=== PATIENT | female | born 1970 | race Two or more races ===

== ENCOUNTER 2016-09-15 16:25 | Emergency (ER) | payer MEDICAID, OTHER ==
[~2016-09-15] VITALS: Ht 167.6 cm; Wt 77.7 kg
[2016-09-15] MEDS ORDERED: LAMO150T PO (17:00)
[2016-09-15] MEDS ORDERED: OLAN10TA9 PO (17:00)
[2016-09-15] MEDS ORDERED: OLAN20TA7 PO (17:00)
[2016-09-15 18:34] VITALS: BP 131/92
== END 2016-09-15 20:09 | disposition home or self-care (01) ==
LOC: ED 19:47
DX: T40.1X1A Poisoning by heroin, accidental (unintentional), initial encounter (principal); F31.9 Bipolar disorder, unspecified; F20.9 Schizophrenia, unspecified; M54.2 Cervicalgia; G89.29 Other chronic pain; J96.01 Acute respiratory failure with hypoxia; Y92.89 Other specified places as the place of occurrence of the external cause
CPT/HCPCS: 99284

== ENCOUNTER 2017-07-18 15:15 | Emergency (ER) | payer MEDICAID, OTHER ==
[~2017-07-18] VITALS: Ht 165.1 cm; Wt 91.1 kg
[~2017-07-18 15:15] MED LIST: LAMO150T2 PO; OLAN10TA9 PO; OLAN20TA7 PO
[2017-07-18 15:18] VITALS: BP 107/67
[2017-07-18] MEDS ORDERED: HYDROcodone/APAP 5/325 TABLET PO ONE (16:38)
[2017-07-18] MEDS ORDERED: HYDROcodone/APAP 5/325 TABLET ONE (17:15)
[2017-07-18] MEDS ORDERED: GABA300C10 PO (18:13)
[2017-07-18] MEDS ORDERED: OLAN10TA3 PO (18:13)
== END 2017-07-18 17:48 | disposition home or self-care (01) ==
LOC: ED 17:17
DX: S22.089A Unspecified fracture of T11-T12 vertebra, initial encounter for closed fracture (principal); S60.221A Contusion of right hand, initial encounter; S70.12XA Contusion of left thigh, initial encounter; S80.02XA Contusion of left knee, initial encounter; M51.36 Other intervertebral disc degeneration, lumbar region; G89.29 Other chronic pain; M54.9 Dorsalgia, unspecified; W18.30XA Fall on same level, unspecified, initial encounter; Y93.89 Activity, other specified; Y92.098 Other place in other non-institutional residence as the place of occurrence of the external cause; Y99.8 Other external cause status
CPT/HCPCS: 72110; 99284